=== PATIENT | female | born 1945 | race Caucasian/White ===

== ENCOUNTER → 2016-06-25 | Outpatient (CLI) | payer MEDICARE ==
[~2016-06-25] MED LIST: ALLOPURINOL300 M1 PO; ASPIRIN 81MG TA81 MG PO; AVAPRO300 MG PO; AZITHROMYCIN250 M1 PO; COLCHICINE0.6 MG PO; DIAZEPAM5 MG PO; FLONASE 50 MCG16 GM; HYDROCODONE 7.51 TAB PO; MECLIZINE HYDRO25 MG PO; NEXIUM40 MG PO; PAXIL20 MG PO; SYNTHROID0.112 MG PO; TRICOR 145 MG145 MG PO; VAGIFEM25 MCG VG; ZETIA10 MG PO
[2016-06-25 14:07] LABS: URINE BILIRUBIN - DIPSTICK NEGATIVE (NEG); URINE BLOOD TRACE-INTACT (NEG)
[2016-06-25 15:03] LABS: BUN 29 mg/dL (7-18)
[2016-06-25 15:19] LABS: GFR (ESTIMATED) 34 ML/MIN (59-)
== END ==
LOC: LAB 13:18
PROVIDERS: Internal Medicine Nephrology
DX: N18.3 Chronic kidney disease, stage 3 (moderate) (principal); R80.9 Proteinuria, unspecified

== ENCOUNTER → 2016-08-25 | Outpatient (CLI) | payer MEDICARE ==
[2016-08-25 15:46] LABS: BUN 32 mg/dL (7-18)
[2016-08-25 15:48] LABS: GFR (ESTIMATED) 32 ML/MIN (59-)
== END ==
LOC: LAB 14:23
PROVIDERS: Specialist
DX: R20.2 Paresthesia of skin (principal); I65.22 Occlusion and stenosis of left carotid artery